=== PATIENT | male | born 1985 | race American Indian/Alaskan Native ===

== ENCOUNTER 2017-09-25 12:16 | Emergency (ER) | payer OTHER, MEDICAID ==
[2017-09-25 12:42] VITALS: BMI 25.0
[2017-09-25 12:43] VITALS: BP 117/73; PULSE 77; RESP 17; TEMP 98; O2SAT 98
--- NOTE | 2017-09-25 14:14 | RAD ---
PROCEDURE: Left Wrist Radiographs. HISTORY: WRIST LEFT PAIN COMPARISON: None. FINDINGS: BONES: Probable acute minimally displaced fracture of the ulnar styloid process. In the lateral view, there isz a linear lucency of the distal radius suggestive of a nondisplaced fracture. This is not evident in the frontal and oblique views. There is also dorsal angulation of the normal distal radial articular surface from its normal ventral angle suggestive of compression deformity. Recommend evaluation with computed tomography if clinically warranted. There is evidence of joint effusion. There is bulging of the pronator fat pad. JOINTS: Radio carpal articulation appears intact. Normal carpal alignment is maintained. SOFT TISSUES: There is soft tissue swelling seen over the dorsal aspect of the distal radius. OTHER FINDINGS: None. IMPRESSION: Suspected nondisplaced distal radial compression fracture. Minimally displaced ulnar styloid process fracture. Consider further evaluation with computed tomography.
--- NOTE | 2017-09-25 14:15 | RAD ---
PROCEDURE: Left middle finger radiographs. HISTORY: FINGER PAIN THIRD DIGIT COMPARISON: None. TECHNIQUE: AP radiograph of the left hand, as well as spot oblique and lateral images of left middle finger were obtained. FINDINGS: LEFT MIDDLE FINGER: Left middle finger normal, without fracture of focal lesion. Remainder of the left hand (as seen on the AP view) is grossly unremarkable. JOINTS: Normal. SOFT TISSUES: Normal. OTHER FINDINGS: None. IMPRESSION: Normal left middle finger radiographs.
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
== END 2017-09-25 15:17 | disposition home or self-care (01) ==
LOC: H.ER 12:16
DX: S39.012A Strain of muscle, fascia and tendon of lower back, initial encounter (principal); S52.502A Unspecified fracture of the lower end of left radius, initial encounter for closed fracture; S52.202A Unspecified fracture of shaft of left ulna, initial encounter for closed fracture; V49.9XXA Car occupant (driver) (passenger) injured in unspecified traffic accident, initial encounter